=== PATIENT | female | born 1945 | race Caucasian/White ===

== ENCOUNTER 2021-01-25 17:42 | Emergency (ER) | payer MEDICARE, BC ==
[~2021-01-25] VITALS: Ht 160 cm; Wt 96.9 kg
--- NOTE | 2021-01-25 17:56 | NUR ---
TRIAGE: FELL ON SUNDAY, INJURY TO RIGHT UPPER BACK/UPPER TORSO. WENT TO DAY TO [facility] AND THEY BELIEVE IT'S MORE RIB INJURY VS SHOULDER AND SENT HERE. HX AORTIC VALVE REPLACEMENT, COPD, THREE STENTS, HTN.
--- NOTE | 2021-01-25 18:12 | NUR ---
ASSUMED CARE, PT SITTING IN CHAIR. WENT TO [facility] WHERE THEY SAID IT IS NOT SHOULDER IT IS R/T TO TORSO.
[2021-01-25] MEDS ORDERED: LISI20TA PO (18:23)
[2021-01-25] MEDS ORDERED: METO-93 PO (18:23)
[2021-01-25] MEDS ORDERED: CLOP75TA52 PO (18:23)
[2021-01-25] MEDS ORDERED: ALLO100T30 PO (18:23)
[2021-01-25] MEDS ORDERED: FLUT12HF2 INH (18:23)
[2021-01-25] MEDS ORDERED: DAPA5TAB PO (18:23)
[2021-01-25] MEDS ORDERED: ATOR80TA PO (18:23)
[2021-01-25] MEDS ORDERED: FLUO10CA13 PO (18:23)
--- NOTE | 2021-01-25 18:59 | NUR ---
RECEIVED REPORT FROM SUDHA IVORY AND SUDHA VALERO TO ASSUME CARE OF PT. AT THIS TIME.
--- NOTE | 2021-01-25 19:01 | NUR ---
DR. MURPHY IN TO EVAL PT. AND DISCUSS POC.
[2021-01-25] MEDS ORDERED: ACETAMINOPHEN 500 MG TABLET ONE (19:12)
--- NOTE | 2021-01-25 19:16 | NUR ---
PT. TAKEN TO CT VIA W/C. WILL MEDICATE UPON RETURN.
[2021-01-25] MEDS ORDERED: ACETAMINOPHEN 500 MG TABLET PO ONE (19:30)
[2021-01-25 19:44] VITALS: BP 171/85
--- NOTE | 2021-01-25 20:04 | NUR ---
INCENTIVE SPIROMETER PROVIDED TO PT. ALONG WITH TEACHING. PT. ABLE TO RETURN DEMONSTRATION APPROPRIATELY. PT. GETTING DRESSED FOR D/C. FAMILY AT FOR SUPPORT.
== END 2021-01-25 20:20 | disposition home or self-care (01) ==
LOC: ED 20:14
DX: S22.31XA Fracture of one rib, right side, initial encounter for closed fracture (principal); S20.211A Contusion of right front wall of thorax, initial encounter; I12.9 Hypertensive chronic kidney disease with stage 1 through stage 4 chronic kidney disease, or unspecified chronic kidney disease; N18.9 Chronic kidney disease, unspecified; E78.5 Hyperlipidemia, unspecified; E11.22 Type 2 diabetes mellitus with diabetic chronic kidney disease; Z98.61 Coronary angioplasty status; W18.30XA Fall on same level, unspecified, initial encounter; Y93.89 Activity, other specified; Y92.009 Unspecified place in unspecified non-institutional (private) residence as the place of occurrence of the external cause; Y99.8 Other external cause status
CPT/HCPCS: 71250; 99284